=== PATIENT | male | born 1995 | race Two or more races ===

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

== ENCOUNTER 2018-03-20 03:20 | Emergency (ER) | payer OTHER ==
--- NOTE | 2018-03-20 03:30 | EDPHY ---
H & P Time Seen by Provider: 03/20/18 03:30 HPI/ROS: HPI CHIEF COMPLAINT: Sore throat. HISTORY OF PRESENT ILLNESS: 22-year-old male, otherwise healthy no significant medical history presents emergency room with 24-48 hours of dry cough and sore throat. No fever. However he states that he feels under the weather. Denies chest pain or shortness of breath, denies productive cough. Main complaint sore throat. Past Medical History: Denies significant medical history Past Surgical History: Denies significant surgical history Social History: Denies daily use drugs alcohol tobacco. Family History: Noncontributory ROS REVIEW OF SYSTEMS: 10 Systems were reviewed and negative with the exception of the elements mentioned in the history of present illness. Exam Constitutional nontoxic no acute distress, appears well, triage nursing summary reviewed, vital signs reviewed, awake/alert. Eyes normal conjunctivae and sclera, EOMI, PERRLA. HENT posterior pharynx erythematous without any exudate, no swelling, uvula midline, no signs of Bay's, moist mucus membranes, no epistaxis, neck supple / no meningismus, no raccoon eyes. Respiratory clear to auscultation bilaterally, normal breath sounds, no respiratory distress, no wheezing. Cardiovascular rate normal, regular rhythm, no murmur, no edema, distal pulses normal. Gastrointestinal soft, non-tender, no rebound, no guarding, normal bowel sounds, no distension, no pulsatile mass. Genitourinary no CVA tenderness. Musculoskeletal no midline vertebral tenderness, full range of motion, no calf swelling, no tenderness of extremities, no meningismus, good pulses, neurovascularly intact. Skin pink, warm, & dry, no rash, skin atraumatic. Neurologic awake, alert and oriented x 3, AAOx3, moves all 4 extremities equally, motor intact, sensory intact, CN II-XII intact, normal cerebellar, normal vision, normal speech. Psychiatric normal mood/affect. Heme/Lymph/Immune no lymphadenopathy. Differential Diagnosis: Includes but is not limited to in a particular order viral syndrome, viral pharyngitis, strep pharyngitis, bronchitis, pneumonia Medical Decision Making: Here in emergency room this patient appears well nontoxic no acute distress. Plan will be for rapid strep given the erythematous look of his throat. His lungs are clear with good air movement no wheezing. Re-evaluation: 526: Rapid strep test is negative. However given the posterior pharynx erythema will place on azithromycin. Recommend alternating Tylenol and or Motrin every 6-8 hours for fever and pain control. Drink lots of fluids stay well-hydrated. 0530: Went to go upddate patient about results. However notified by nursing staff that patient "got sick of waiting and left" Despite nursing explaining to the patient that there were multiple critical patient's in the department at the time that required attention. Apparently patient "got upset about waiting" and left. Source: Patient - Medical/Surgical History Hx Asthma: No Hx Chronic Respiratory Disease: No Hx Diabetes: No Hx Cardiac Disease: No Hx Renal Disease: No Hx Cirrhosis: No Hx Alcoholism: No Hx HIV/AIDS: No Hx Splenectomy or Spleen Trauma: No Other PMH: wisdom teeth removed 2 weeks ago, heart palpitations - Social History Smoking Status: Never smoked Constitutional: Initial Vital Signs Temperature (C) 36.7 C 03/20/18 03:20 Heart Rate 82 03/20/18 03:20 Respiratory Rate 18 03/20/18 03:20 Blood Pressure 116/78 03/20/18 03:20 O2 Sat (%) 95 03/20/18 03:20 O2 Delivery Mode Room Air Allergies/Adverse Reactions: No Known Allergies Allergy (Unverified 06/27/16 21:59) Home Medications: Medication Instructions Recorded Azithromycin [Zithromax] 250 mg PO DAILY #6 tab 03/20/18 FLUoxetine [Prozac 20 MG (*)] 03/20/18 Medical Decision Making - Data Points Laboratory Results: 03/20/18 Unknown Group A Strep DNA NEGATIVE (NEGATIVE) Departure - Departure Disposition: Home, Routine, Self-Care Clinical Impression: Pharyngitis Qualifiers: Pharyngitis/tonsillitis etiology: unspecified etiology Qualified Code(s): J02.9 - Acute pharyngitis, unspecified Condition: Good Instructions: Pharyngitis (ED) Additional Instructions: 1. Drink lots of fluids stay well-hydrated 2. Alternate Tylenol and Motrin every 6-8 hours 3. Antibiotic as prescribed 4. Return if worse. Referrals: NONE *PRIMARY CARE P,. [Primary Care Provider] - As per Instructions [facility] [Clinic] - As per Instructions Prescriptions: Azithromycin [Zithromax] 250 mg PO DAILY #6 tab
[2018-03-20 03:31] VITALS: BP 116/78
== END 2018-03-20 05:37 | disposition home or self-care (01) ==
DX: J02.9 Acute pharyngitis, unspecified (principal)